=== PATIENT | female | born 1970 | race Hispanic/Latino ===

== ENCOUNTER 2018-04-30 22:05 | Emergency (ER) | payer OTHER, SELFPAY ==
[2018-04-30 22:10] VITALS: BP 131/83; PULSE 73; RESP 18; O2SAT 99; BMI 32.6
--- NOTE | 2018-04-30 22:30 | DI.RAD.S_ITS ---
PROCEDURE: XR CHEST 1V INDICATIONS: chest pain / palpitations TECHNIQUE: One view of the chest was acquired. COMPARISON: None. FINDINGS: Surgical changes and devices: None. Lungs and pleura: No pleural effusions or pneumothorax. Lungs are clear. Mediastinum: Mediastinal contours appear normal. Heart size is normal. Bones and chest wall: No suspicious bony lesions. Overlying soft tissues appear unremarkable. IMPRESSION: No acute cardiopulmonary pathology. Dictated by: Sander Bean M.D. on 04/30/2018 at 23:20 Approved by: Sander Bean M.D. on 04/30/2018 at 23:20
[2018-04-30 23:26] VITALS: BP 127/75; PULSE 74; RESP 16; O2SAT 99
[2018-04-30 23:37] LABS: Add Manual Diff / Slide Review NO; Basophils Percent Auto 0.5 % (0-2); Eosinophils Percent Auto 1.3 % (2-4); Hematocrit 36.9 % (36-46); Lymphocytes Percent Auto 29.4 % (25-40); Mean Corpuscular HGB Conc 35.3 % (30-36); Mean Corpuscular Hemoglobin 32.5 PG (26-34); Monocytes Percent Auto 8.2 % (3-14); Neutrophils Absolute Auto 5900 /uL (3000-5900); Neutrophils Percent Auto 60.6 % (50-75); Platelet Count 282 X10^3/uL (150-400); Red Blood Cell Count 4.02 X10^6/uL (4.0-5.2); Red Cell Distribution Width 12.6 % (11.6-14.8); White Blood Cell Count 9.7 X10^3/uL (4.5-11.0)
[2018-04-30 23:45] LABS: Alanine Aminotransferase 30 IU/L (9-52); Albumin 4.3 g/dL (3.5-5.0); Albumin Globulin Ratio 1.7 (1.0-2.8); Alkaline Phosphatase 75 U/L (38-126); Aspartate Aminotransferase 22 IU/L (14-36); BUN Creatinine Ratio 21.1 (6-22); Bilirubin Total 0.3 mg/dL (0.2-1.3); Blood Urea Nitrogen 19 mg/dL (7-17); Carbon Dioxide 29 mmol/L (22-32); Chloride 103 mmol/L (98-107); Creatine Kinase 100 U/L (30-135); Estimated Glomerular Filt Rate > 60.0 mL/min (>60); Globulin 2.6 g/dL (1.7-4.1); Glucose 109 mg/dL (70-100); HEMOLYSIS < 15 (0-50); Lipase 48 U/L (23-300); Potassium 3.6 mmol/L (3.4-5.1); Sodium 143 mmol/L (137-145); Total Protein 6.9 g/dL (6.3-8.2)
[2018-04-30] MEDS: SODIUM CHLORIDE 0.9% 1,000 ML 150 ML IV (23:49)
[2018-04-30 23:57] LABS: Troponin I < 0.012 ng/mL (0.01-0.034)
[2018-05-01 00:01] VITALS: BP 121/55; PULSE 72; RESP 72; O2SAT 98
--- NOTE | 2018-05-01 00:14 | PC.NURSE ---
Patient reports feeling of palpitation, shortness of breath, and intermittent chest pain for the past 5 days which she thought was from the smoke. Recently treated for pneumonia a month ago.
[2018-05-01 00:17] LABS: Bacteria Urine None Seen; WBC Urine None Seen (0-5/HPF)
[2018-05-01 00:26] LABS: Culture Indicated Urine Cult Not Indicated; RBC Urine 1-5/HPF (0-5/HPF); Squamous Epithelial Cell Urine 5-10 /HPF
--- NOTE | 2018-05-01 00:42 | ED_ITS ---
HPI - Arrhythmia/Palpitations General Chief Complaint: Arrhythmia/Palpitations Stated Complaint: PRESSURE OF CHEST LEFT ARM BURING DIZZY SOB Time Seen by Provider: 04/30/18 22:15 Source: patient and family Mode of arrival: ambulatory Limitations: no limitations History of Present Illness HPI narrative: 47-year-old female with a chief complaint chest pain and shortness of breath for the past 5 days to emergency department with her mother. She denies any dizziness, weakness or lightheadedness. She denies any provocation, palliation or radiation of her symptoms. She denies recent travel, history of blood clots, leg swelling, history of cancer. Additionally she complains of palpitations on occasion. She has similar episode a few years ago during a particularly stressful episode at home was told it was merely stress related. She is otherwise healthy and denies any significant or contributory medical history. She is a nonsmoker MD complaint: heart racing, skipped beats and palpitations Onset (ago): day(s) Duration: intermittent Severity: mild Context: occurred during rest Associated symptoms: denies other symptoms Related Data Home Medications Medication Instructions Recorded Confirmed levothyroxine 25 mcg PO QAM #0 11/19/16 aspirin 650 mg PO Q4-6H PRN 04/30/18 04/30/18 Previous Rx's Medication Instructions Recorded ondansetron [Zofran ODT] 4 mg SUBLINGUAL Q6HP PRN #20 odt 11/19/16 oxycodone-acetaminophen [Percocet] 1 tab PO Q4HP PRN #20 tab 11/19/16 Allergies Allergy/AdvReac Type Severity Reaction Status Date / Time Sulfa (Sulfonamide Allergy Unknown mouth, lip Verified 04/30/18 22:16 Antibiotics) swelling, [SULFA (SULFONAMIDE rash ANTIBIOTICS)] Review of Systems Review of Systems All systems reviewed & are unremarkable except as noted in HPI and below Constitutional Denies chills, Denies fever(s), Denies lethargy and Denies weakness Eyes Denies change in vision, Denies eye discharge, Denies irritation and Denies loss of vision ENT Ears, Nose, Mouth, and Throat: Denies change in voice, Denies neck pain and Denies sore throat Cardiovascular Reports chest pain, Denies irregular heart rhythm, Denies lightheadedness, Denies palpitations, Denies dyspnea, Denies dyspnea on exertion and Denies orthopnea Respiratory Denies cough, Denies dyspnea, Denies dyspnea on exertion and Denies wheezing Gastrointestinal Gastrointestinal: Denies abdominal pain, Denies change in bowel habits, Denies diarrhea, Denies nausea and Denies vomiting Genitourinary Denies hematuria, Denies flank pain, Denies urinary incontinence and Denies urinary urgency Musculoskeletal Denies neck pain Integumentary/Breasts Denies pruritus, Denies erythema, Denies rash and Denies wounds Neurologic Denies confusion, Denies loss of vision and Denies weakness Psychiatric Denies anxiety, Denies confusion, Denies depression, Denies homicidal ideation and Denies suicidal ideation Endocrine Denies palpitations Hematologic/Lymphatic Denies easy bruising Allergic/Immunologic Denies wheezing [facility] Social History Smoking Status: Never smoker Exam Initial Vital Signs Initial Vital Signs: Vital Signs Pulse Rate 73 04/30/18 22:10 Respiratory Rate 18 04/30/18 22:10 Blood Pressure 131/83 H 04/30/18 22:10 Pulse Oximetry 99 04/30/18 22:10 Const General: cooperative and well developed Nutritional Appearance: well nourished Orientation: alert, awake, oriented x3 and not confused HENMT Head: normocephalic and atraumatic Ears: external ears normal and TM's normal bilaterally Nose: external nose normal and No nasal discharge Face and sinus: sinuses nontender, face symmetric, no sinus tenderness and No dry mucous membranes Mouth: oral mucosae normal and moist mucous membranes Teeth and gingiva: dentition normal Throat: tonsils normal and uvula midline Eyes General: appearance normal, both eyes and all related structures Eyelids: eyelids normal Conjunctivae: conjunctivae normal Sclera: sclerae normal Pupils: PERRL EOM: EOM intact bilaterally Neck Neck: normal visual inspection, trachea midline, No lymphadenopathy, No midline deformity and No JVD Lymphatic: No lymphedema Chest Chest: normal inspection of the chest Resp Effort & Inspection: normal respiratory effort, able to speak in complete sentences, no respiratory distress and no use of accessory muscles Auscultation: clear to auscultation bilaterally, no rales, no rhonchi and no wheezes Cardio Rate: regular rate Rhythm: regular rhythm Heart Sounds: no click, no gallops, no murmurs and no rubs Pulses: normal peripheral pulses GI Inspection: non-distended Palpation: soft, no hepatosplenomegaly, No guarding, No pulsatile mass and No tender Auscultation: normal bowel sounds Back/Spine/Pelvis Back: No CVA tenderness Cervical Spine: cervical ROM normal and No pain with cervical ROM Thoracic/Lumbar Spine: thoracic and lumbar spine normal to inspection Skin General: no rashes or lesions noted, No jaundice and No petechiae Neuro General: alert, oriented x3, gait normal and no focal motor deficits Speech: speech normal Extrem General: full ROM, no clubbing, cyanosis or edema, no pedal edema and no calf tenderness Psych Appearance: well kempt Mental Status: mental status grossly normal Attitude: cooperative Thought Content: normal and suicidality Judgment: judgment good Scores HEART Score Heart Score history: Slightly Suspicious Heart Score EKG: Normal Heart Score Age: 45-64 years old Heart Score risk factors: No known risk factors Heart Score troponin: < or = to normal limit Heart Score Total: 1 Wells' Criteria for PE Clinical signs and symptoms of PE: No PE is #1 Dx or equally likely: No Heart rate > 100: No Immobilization at least 3 days or surg in previous 4 weeks: No History of PE or DVT: No Hemoptysis: No Malignancy w/Treatment within 6 months or palliative: No Wells' PE Score total: 0 Course Orders Ordered: ED Orders 04/30/18 22:30 XR chest 1V Stat EKG-12 Lead Stat 04/30/18 23:15 Complete Blood Count AUTO DIFF Stat Comprehensive Metabolic Panel Stat Lipase Stat Troponin & CK Cardiac Panel Stat 05/01/18 Urine Microscopic Stat Sodium Chloride (Normal Saline 0.9%) 1,000 mls @ 150 mls/hr IV CONT GAVIN Last Admin: 04/30/18 23:49 Dose: 150 mls/hr Discontinued Medications Aspirin (Aspirin Chew) 324 mg PO NOW ONE Stop: 04/30/18 22:31 Last Admin: 04/30/18 23:49 Dose: Not Given Vital Signs - 8 hr 04/30/18 22:10 04/30/18 23:26 Pulse Rate 73 74 Respiratory Rate 18 16 Blood Pressure 131/83 H Blood Pressure [Right Arm] 127/75 H Pulse Oximetry 99 99 MDM - Arrhythmia/Palpitations Differential Diagnosis Differential diagnosis: Likely palpitations, anxiety, sinus tachycardia, artial fibrillation, artial flutter, ventricular premature beats, supraventricular tachycardia, ventricular tachycardia and WPW Medical Records Attestation: I reviewed the patient's medical records. Lab Data Attestation: I reviewed the patient's lab results. Result diagrams: 04/30/18 23:15 04/30/18 23:15 Lab Results 04/30/18 04/30/18 05/01/18 Range/Units 23:15 23:15 Unknown WBC 9.7 (4.5-11.0) X10^3/uL RBC 4.02 (4.0-5.2) X10^6/uL Hgb 13.0 (12.0-16.0) g/dL Hct 36.9 (36-46) % MCV 92.0 (80-100) fL MCH 32.5 (26-34) PG MCHC 35.3 (30-36) % RDW 12.6 (11.6-14.8) % Plt Count 282 (150-400) X10^3/uL Neut % (Auto) 60.6 (50-75) % Lymph % (Auto) 29.4 (25-40) % [place] % (Auto) 8.2 (3-14) % Eos % (Auto) 1.3 L (2-4) % Baso % (Auto) 0.5 (0-2) % Neut # (Auto) 5900 (3422-4919) /uL Sodium 143 (137-145) mmol/L Potassium 3.6 (3.4-5.1) mmol/L Chloride 103 (98-107) mmol/L Carbon Dioxide 29 (22-32) mmol/L BUN 19 H (7-17) mg/dL Creatinine 0.90 (0.52-1.04) mg/dL Estimated GFR > 60.0 (>60) mL/min BUN/Creatinine Ratio 21.1 (6-22) Glucose 109 H (70-100) mg/dL Calcium 9.0 (8.4-10.2) mg/dL Total Bilirubin 0.3 (0.2-1.3) mg/dL AST 22 (14-36) IU/L ALT 30 (9-52) IU/L Alkaline Phosphatase 75 (38-126) U/L Total Creatine Kinase 100 (30-135) U/L Troponin I < 0.012 (0.01-0.034) ng/mL Total Protein 6.9 (6.3-8.2) g/dL Albumin 4.3 (3.5-5.0) g/dL Globulin 2.6 (1.7-4.1) g/dL Albumin/Globulin Ratio 1.7 (1.0-2.8) Lipase 48 (23-300) U/L Urine RBC 1-5/hpf (0-5/HPF) Urine WBC None seen (0-5/HPF) Ur Squamous Epith Cells 5-10 /hpf H Urine Bacteria None seen (None) Ur Culture Indicated? Cult not indicated Micro UA Comment Not Reportable Imaging Data Chest x-ray: Radiologist's impression: PROCEDURE: XR CHEST 1V INDICATIONS: chest pain / palpitations TECHNIQUE: One view of the chest was acquired. COMPARISON: None. FINDINGS: Surgical changes and devices: None. Lungs and pleura: No pleural effusions or pneumothorax. Lungs are clear. Mediastinum: Mediastinal contours appear normal. Heart size is normal. Bones and chest wall: No suspicious bony lesions. Overlying soft tissues appear unremarkable. IMPRESSION: No acute cardiopulmonary pathology. Dictated by: Sander Bean M.D. on 04/30/2018 at 23:20 Approved by: Sander Bean M.D. on 04/30/2018 at 23:20 ECG Data Attestation: I personally reviewed and interpreted this ECG as follows: Prior ECG tracings: not available for review Interpretation: Normal sinus rhythm without signs of ectopy or ischemia such as ST elevation or depression, nor T-wave inversions MDM Narrative Medical decision making narrative: Coronary disease such as myocardial infarction, angina, unstable angina considered but patient has a very low heart score, troponins and EKG normal. Description of discomfort does not follow a typical ischemia pattern. Clot (PE) considered but well score quite low. Inflammatory condition related to smoke exposure considered and thought likely given description of discomfort and lack of significant findings on labs and imaging Discharge Plan Departure Patient Disposition: Home Clinical Impression: Atypical chest pain Instructions: DI for Atypical Chest Pain Activity Restrictions/Additional Instructions: *You have been diagnosed with [ atypical chest pain, possibly pleurisy from smoke ] *What to do: *Take medications as directed: Anti-inflammatories such as ibuprofen, over -the-counter *Follow up with your primary care provider in 2-3 days, call for an appointment. Let them know you were seen in the Emergency Department and that we ask that you be seen in follow up *Return to ER if you should have any new, worsening or concerning symptoms , such as [ increasing pain, dizziness, weakness, lightheadedness, shortness of breath or other bothersome symptoms] Prescriptions: No Action levothyroxine 25 MCG tablet 25 mcg PO QAM Qty: 0 RF: 0 oxycodone-acetaminophen [Percocet] 5 MG/325 MG tablet 1 tab PO Q4HP PRNQty: 20 RF: 0 ondansetron [Zofran ODT] 4 MG tablet,disintegrating 4 mg Sublingual Q6HP PRNQty: 20 RF: 0 aspirin 325 mg Tablet 650 mg PO Q4-6H PRN (Reason: Headache) RF: 0 Referrals: Nany Hyman FNP-BC [Primary Care Provider] -
[2018-05-01 01:00] VITALS: BP 111/66; PULSE 67; RESP 17; O2SAT 99
--- NOTE | 2018-06-12 12:38 | PC.NURSE ---
Late Entry for 05/01/18 @ 0130. IVF if NS infused total 450ml when pt dc'd
== END 2018-05-01 01:29 | disposition home or self-care (01) ==
PROVIDERS: Emergency Provider Emergency Medicine; Family Provider Nurse Practitioner Family; PCP Nurse Practitioner Family
DX: R07.89 Other chest pain (principal)
CPT/HCPCS: 36591; 71045; 80053; 81003; 81015; 81025; 82550; 82553; 83690; 84484; 85025; 93005; 93010; 96360; 96361; 99283; 99285

== ENCOUNTER 2019-11-05 16:54 | Emergency (ER) | payer OTHER, SELFPAY ==
[2019-11-05 17:16] VITALS: BP 138/90; PULSE 66; RESP 16; TEMP 36.8; O2SAT 96; BMI 27.9
[2019-11-05] MEDS: FLUORESCEIN 1 MG STRIP 2 MG (18:51)
--- NOTE | 2019-11-05 19:01 | ED.URI ---
HPI - URI/Sore Throat <DOT Galeana-BC - Last Filed: 11/05/19 20:08> General Chief Complaint: Upper Respiratory Symptoms Stated Complaint: nausea,eyes feel weird,itchy,headache Time Seen by Provider: 11/05/19 17:31 Source: patient and family Mode of arrival: Ambulatory Limitations: no limitations History of Present Illness HPI Narrative: The patient is a 40-year-old female nonsmoker with history of LASIK surgery who presents with a chief complaint of itchy red eyes ongoing for over a week. 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 She denies any visual deficit, blurry vision, drainage, crusting. She states her vision is normal. Denies any haloing of lights. 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 Related Data Home Medications Medication Instructions Recorded Confirmed levothyroxine 25 mcg PO QAM #0 11/19/16 aspirin 650 mg PO Q4-6H PRN 04/30/18 04/30/18 Previous Rx's Medication Instructions Recorded ondansetron [Zofran ODT] 4 mg SUBLINGUAL Q6HP PRN #20 odt 11/19/16 oxycodone-acetaminophen [Percocet] 1 tab PO Q4HP PRN #20 tab 11/19/16 cromolyn 1 drop EYE-BOTH QID 10 Days #10 ml 11/05/19 Allergies Allergy/AdvReac Type Severity Reaction Status Date / Time Sulfa (Sulfonamide Allergy Unknown mouth, lip Verified 04/30/18 22:16 Antibiotics) swelling, [SULFA (SULFONAMIDE rash ANTIBIOTICS)] Review of Systems <BENTON Galeana - Last Filed: 11/05/19 20:08> Review of Systems Narrative: GENERAL: Denies chills, fatigue, malaise, fever, sweats. HEENT: See HPI RESPIRATORY: Denies dyspnea, cough, wheezing, hemoptysis, sputum. CARDIOVASCULAR: Denies chest pain, palpitations, orthopnea, edema, GASTROINTESTINAL: Denies nausea, vomiting, abdominal pain, diarrhea, constipation, melena. : Denies dysuria, frequency, incontinence, hematuria, urinary retention. MUSCULOSKELETAL: denies weakness, joint pain, or bony pain SKIN: Denies rash, skin lesions, or other NEUROLOGIC: Denies weakness, headache, numbness, change in speech, confusion, seizures, incoordination. PSYCHIATRIC: No concerning psychosocial issues. 12 point review of systems is negative except for those stated above Patient History <BENTON Galeana - Last Filed: 11/05/19 20:08> Social History Smoking Status: Never smoker Smoking Status: Never smoker alcohol intake frequency: holidays/special occasions only Substance Use Type: does not use Exam <BENTON Galeana - Last Filed: 11/05/19 20:08> Narrative Exam Narrative: GENERAL: This is a well-nourished, well-developed patient, in no acute distress HEAD: Atraumatic. Normocephalic. No temporal or scalp tenderness. EYES: Pupils equal round and reactive. Extraocular motions intact. No scleral icterus. No injection or drainage. ENT: Nose without bleeding, purulent drainage or septal hematoma. Throat without erythema, tonsillar hypertrophy or exudate. Uvula midline. Airway patent. Fluorescein exam illustrate no abnormality bilaterally. NECK: Trachea midline. No JVD or lymphadenopathy. Supple, nontender, no meningeal signs. CARDIOVASCULAR: Regular rate and rhythm without murmurs, gallops, or rubs. RESPIRATORY: Clear to auscultation. Breath sounds equal bilaterally. No wheezes, rales, or rhonchi. No cough no increased respiratory effort. No accessory muscle use EXTREMITIES: No clubbing, cyanosis, or edema. No joint tenderness, effusion, or edema noted. BACK: Nontender without deformity or crepitance. No flank tenderness. NEURO: AOx3. SKIN: No rash or erythema on visible skin. No erythema around ice. Initial Vital Signs Initial Vital Signs: Vital Signs Temperature 98.3 F 11/05/19 17:16 Pulse Rate 66 11/05/19 17:16 Respiratory Rate 16 11/05/19 17:16 Blood Pressure 138/90 11/05/19 17:16 Pulse Oximetry 96 11/05/19 17:16 <Leonardo Silva DO - Last Filed: 11/07/19 02:47> Initial Vital Signs Initial Vital Signs: Vital Signs Temperature 98.3 F 11/05/19 17:16 Pulse Rate 66 11/05/19 17:16 Respiratory Rate 16 11/05/19 17:16 Blood Pressure 138/90 11/05/19 17:16 Pulse Oximetry 96 11/05/19 17:16 Course <BENTON Galeana - Last Filed: 11/05/19 20:08> Orders Ordered: Discontinued Medications Proparacaine HCl (Parcaine 0.5% Ophth Maureen) 1 drops EYE-BOTH NOW ONE Stop: 11/05/19 18:06 Last Admin: 11/05/19 19:19 Dose: Not Given Documented by: JACQUELYN Vital Signs Vital signs: Vital Signs - 8 hr 11/05/19 17:16 11/05/19 19:24 Temperature 98.3 F Pulse Rate 66 80 Respiratory Rate 16 16 Blood Pressure 138/90 130/78 Pulse Oximetry 96 99 <Leonardo Silva DO - Last Filed: 11/07/19 02:47> Orders Ordered: Discontinued Medications Proparacaine HCl (Parcaine 0.5% Ophth Maureen) 1 drops EYE-BOTH NOW ONE Stop: 11/05/19 18:06 Last Admin: 11/05/19 19:19 Dose: Not Given Documented by: JACQUELYN Vital Signs Vital signs: Vital Signs - 8 hr 11/05/19 17:16 11/05/19 19:24 Temperature 98.3 F Pulse Rate 66 80 Respiratory Rate 16 16 Blood Pressure 138/90 130/78 Pulse Oximetry 96 99 MDM - URI/Sore Throat <BENTON Galeana - Last Filed: 11/05/19 20:08> MDM Narrative Medical decision making narrative: The patient is a 40-year-old female who denies pertinent medical history who presents with a chief complaint of itchy red eyes for the past few weeks. 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 No indications of foreign body on fluorescein exam. Visual acuity is 2020 bilaterally. Exam does not correlate with bacterial conjunctivitis, given that his bilateral with red itchy eyes elected to treat for allergic conjunctivitis. Cromolyn prescriptions sent him. Discussed also [id number] antihistamines. Discharge Plan Departure Patient Disposition: Home Clinical Impression: Allergic conjunctivitis Qualifiers: Laterality: bilateral Qualified Code(s): H10.13 - Acute atopic conjunctivitis, bilateral Discharge Date/Time: 11/05/19 19:24 Instructions: DI for Eye Allergic Reaction Activity Restrictions/Additional Instructions: I sent a prescription of and antihistamine eyedrops to [facility] in [place] Please follow-up with primary care provider it also might be warranted to try an oral antihistamine which is [id number] Please monitor for any drainage from your eyes Please come back to the emergency department for any acute concerns such as visual deficit Prescriptions: New cromolyn 4 % drops 1 drop EYE-BOTH QID 10 Days Qty: 10 RF: 0 No Action levothyroxine 25 MCG tablet 25 mcg PO QAM Qty: 0 RF: 0 oxycodone-acetaminophen [Percocet] 5 MG/325 MG tablet 1 tab PO Q4HP PRNQty: 20 RF: 0 ondansetron [Zofran ODT] 4 MG tablet,disintegrating 4 mg Sublingual Q6HP PRNQty: 20 RF: 0 aspirin 325 mg Tablet 650 mg PO Q4-6H PRN (Reason: Headache) RF: 0 Referrals: Nany Hyman FNP-BC [Primary Care Provider] -
[2019-11-05 19:24] VITALS: BP 130/78; PULSE 80; RESP 16; O2SAT 99
== END 2019-11-05 19:24 | disposition home or self-care (01) ==
PROVIDERS: Emergency Provider Nurse Practitioner Family; Family Provider Nurse Practitioner Family; PCP Nurse Practitioner Family
DX: H10.13 Acute atopic conjunctivitis, bilateral (principal)
CPT/HCPCS: 99282